=== PATIENT | female | born 1960 | race Caucasian/White ===

== ENCOUNTER 2019-03-07 12:06 | Emergency (ER) | payer BC, OTHER ==
--- NOTE | 2019-03-07 12:19 | ED Physician Documentation ---
General Adult - HISTORIAN Historian: patient - HPI Stated Complaint: cut left hand first finger with knife cutting bread Chief Complaint: Laceration/Recheck/Suture Onset: hours (6) Timing: still present Severity: mild Further Comments: yes (She reports around 0930 she was cutting bread and did cut her first finger on left hand with a knife. She states she could not get the bleeding to stop. No loss of feeling. She has no other complaints) - ROS CONST: no problems EYES/ENT: none CVS/RESP: none GI/: none MS/SKIN/LYMPH: other (laceration ) NEURO/PSYCH: denies: headache, fainting, dizziness - PAST HX Past History: none Immunizations: tetanus Allergies/Adverse Reactions: Allergies Allergy/AdvReac Type Severity Reaction Status Date / Time Sulfa (Sulfonamide Allergy Verified 03/07/19 12:33 Antibiotics) Home Medications: Ambulatory Orders Medication Instructions Recorded Aspirin EC [Ecotrin] 81 mg PO DAILY 03/07/19 Pravastatin Sodium 40 mg PO DAILY 03/07/19 Sertraline HCl [Zoloft] 25 mg PO DAILY 03/07/19 - SOCIAL HX Smoking History: non-smoker Alcohol Use: none Drug Use: none - FAMILY HX Family History: No - VITAL SIGNS Vital Signs: Vital Signs Temp Pulse Resp BP Pulse Ox 67 20 128/72 96 03/07/19 13:33 03/07/19 13:33 03/07/19 13:33 03/07/19 13:33 - REVIEWED ASSESSMENTS Nursing Assessment Reviewed: Yes Vitals Reviewed: Yes ED Results Lab/Radiology - Orders Orders: ED Orders Category Date Time Status Apply/change dressing 1T Care 03/07/19 12:55 Active Cleanse with NS and Chlorhexid 1T Care 03/07/19 12:55 Active Skin Adhesive NOW Care 03/07/19 13:00 Ordered Diph,Pertuss(Acell),Tet Vac/Pf [Adacel] Med 03/07/19 13:00 Discontinued 0.5 ml IM .STK-MED ONE General Adult Physical Exam - PHYSICAL EXAM GENERAL APPEARANCE: no distress EENT: eye inspection normal, no signs of dehydration NECK: normal inspection RESPIRATORY: no resp distress, chest non-tender, breath sounds normal CVS: reg rate & rhythm ABDOMEN: soft SKIN: warm/dry, other (laceration on left hand first finger unable to approximate wound - pulses + cap refill + from + wound approx 2 cm in length ) NEURO: oriented X3 Discharge Clincal Impression: Laceration of right hand Qualifiers: Encounter type: initial encounter Foreign body presence: without foreign body Qualified Code(s): S61.411A - Laceration without foreign body of right hand, initial encounter Referrals: Angelito Barnes MD [Primary Care Provider] - 2 Days Comments: 1. Keep area clean and dry 2. Keep dressing on for 24 hours 3. Replace as needed - dressing 4. Follow up with PCP in 2-4 days if needed 5. Return to ER for any increased concerns Condition: Stable Disposition: 01 HOME, SELF-CARE Decision to Admit: NO Date of Decison to Admit: 03/07/19 Decision Time: 12:59
[2019-03-07] MEDS ORDERED: DIPH,PERTUSS(ACELL),TET VAC/PF 0.5 ML DISP.SYRIN IM ONE (13:00)
[2019-03-07 14:25] VITALS: BP 128/72
== END 2019-03-07 13:21 | disposition home or self-care (01) ==
LOC: ED 12:06
DX: S61.411A Laceration without foreign body of right hand, initial encounter (principal); W26.0XXA Contact with knife, initial encounter; Y93.G3 Activity, cooking and baking
CPT/HCPCS: 90471; 90715; 99282; 99284